=== PATIENT | female | born 1975 | race Asian ===

== ENCOUNTER 2017-09-04 20:39 | Inpatient (IN) | payer MEDICAID ==
[~2017-09-04] VITALS: Ht 160 cm; Wt 65.9 kg
[2017-09-04] MEDS ORDERED: ASPIRIN E.C. 8181 MG PO (21:05)
[2017-09-04] MEDS ORDERED: PROMETRIUM100 MG PO (21:06)
[2017-09-04] MEDS ORDERED: ENDOMETRIN100 MG VG (21:07)
[2017-09-04] MEDS ORDERED: PRENATAL MVI (21:07)
[2017-09-04] MEDS ORDERED: PROFERRIN-FORTE1 TAB PO (21:08)
[2017-09-04] MEDS ORDERED: CLARITIN 1010 MG/TAB (21:08)
[2017-09-04 21:09] VITALS: BP 113/71; PULSE 87; TEMP 97.9
[2017-09-04 21:30] VITALS: BP 117/56; PULSE 79; TEMP 97.9
[2017-09-04 22:15] VITALS: BP 117/56; PULSE 79
[2017-09-04 22:16] LABS: MEAN CELL VOLUME 97 fl (80.0-100.0); MEAN CORPUSCULAR HGB CONC 33 g/dl (33.0-37.0); MEAN PLATELET VOLUME 9.3 fl (7.4-10.4); PLATELET COUNT 277 K/mm3 (130-400); RED BLOOD COUNT 3.22 M/mm3 (4.10-5.30); WHITE BLOOD COUNT 10.2 K/mm3 (4.8-10.8)
[2017-09-04 22:17] LABS: HEMATOCRIT 31.2 % (37.0-47.0); HEMOGLOBIN 10.4 g/dl (12.5-16.0); MEAN CORPUSCULAR HEMOGLOBIN 32 pg (27.0-31.0)
[2017-09-04 22:18] LABS: ADD PATHOLOGY DIFF REVIEW NO
[2017-09-04 22:47] LABS: BAND 23 % (0-10); EOSINOPHIL 1 % (0-4); LYMPHOCYTE 18 % (20.0-51.0); NEUTROPHILS 52 % (42.0-75.2); PLATELET ESTIMATE NORMAL (NORMAL); TOTAL CELLS COUNTED 100
[2017-09-04 23:45] VITALS: BP 131/69; PULSE 89
[2017-09-04 23:50] VITALS: BP 123/63; PULSE 82
[2017-09-04 23:55] VITALS: BP 121/64; PULSE 83
[2017-09-05] VITALS (13 sets, daily range): BP systolic 89–121; BP diastolic 51–75; PULSE 9–94; TEMP 97.6–98.2
[2017-09-05 07:15] LABS: HEMATOCRIT 28.7 % (37.0-47.0); HEMOGLOBIN 9.4 g/dl (12.5-16.0)
[2017-09-06 08:15] VITALS: BP 91/51; PULSE 75; TEMP 97.9
[2017-09-06] MEDS ORDERED: PERCOCET 325 MG1 TA2 PO (09:35)
[2017-09-06] MEDS ORDERED: MOTRIN 600600 MG/TAB PO (09:35)
[2017-09-06 16:00] VITALS: BP 90/50; PULSE 84; TEMP 98
[2017-09-06 19:38] VITALS: BP 106/58; PULSE 88; TEMP 99.2
[2017-09-07 08:26] VITALS: BP 89/49; PULSE 67; TEMP 97.5
== END 2017-09-07 16:45 | disposition home or self-care (01) | DRG 766 ==
LOC: LDRO 20:39 → OB 21:41
PROVIDERS: Obstetrics & Gynecology
PROC: 10D00Z1 Extraction of Products of Conception, Low, Open Approach (ICD-10-PCS; principal; 2017-09-04)
DX: O42.013 Preterm premature rupture of membranes, onset of labor within 24 hours of rupture, third trimester (principal); O99.02 Anemia complicating childbirth; D64.9 Anemia, unspecified; Z3A.35 35 weeks gestation of pregnancy; Z37.0 Single live birth
CPT/HCPCS: J0690; J2175; J2370; J2405; J2590; J7120